=== PATIENT | female | born 1960 | race Caucasian/White ===

== ENCOUNTER 2022-03-14 18:59 | Emergency (ER) | payer SELFPAY ==
[~2022-03-14] VITALS: Ht 170.2 cm; Wt 61.2 kg
[2022-03-14 19:05] VITALS: BP 175/92
--- NOTE | 2022-03-14 19:05 | NUR ---
RENE OLMEDO VIA GURNEY TO BED 02.
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
[2022-03-14] MEDS ORDERED: CYCL-711 PO (19:46)
[2022-03-14] MEDS ORDERED: IBUP-2213 PO (19:46)
[2022-03-14] MEDS ORDERED: ACET-10509 PO (19:46)
[2022-03-14] MEDS ORDERED: ACETAMINOPHEN EXTRA STRENGTH 500 MG TAB PO ONE (19:50)
[2022-03-14] MEDS ORDERED: CYCLOBENZAPRINE 10 MG TAB PO ONE (19:50)
[2022-03-14] MEDS ORDERED: KETOROLAC 60 MG/2 ML VIAL IM ONE (19:50)
[2022-03-14 20:35] VITALS: BP 175/92
--- NOTE | 2022-03-14 20:35 | NUR ---
Patient discharged with v/s stable. Written and verbal after care instructions given and explained. Patient alert, oriented and verbalized understanding of instructions. Ambulatory with steady gait. All questions addressed prior to discharge. ID band removed. Patient advised to follow up with PMD. Rx of TYLENOL EXTRA STRENGTH, IBUPROFEN given. Patient educated on indication of medication including possible reaction and side effects. Opportunity to ask questions provided and answered.
== END 2022-03-14 20:35 | disposition home or self-care (01) ==
LOC: MED 18:59
DX: S16.1XXA Strain of muscle, fascia and tendon at neck level, initial encounter (principal); S09.90XA Unspecified injury of head, initial encounter; Z79.899 Other long term (current) drug therapy; Z88.8 Allergy status to other drugs, medicaments and biological substances; V49.49XA Driver injured in collision with other motor vehicles in traffic accident, initial encounter; Y93.89 Activity, other specified; Y92.89 Other specified places as the place of occurrence of the external cause; Y99.8 Other external cause status
CPT/HCPCS: 96372; 99283; J1885